=== PATIENT | male | born 1950 | race Caucasian/White ===

== ENCOUNTER → 2016-08-15 | Outpatient (CLI) | payer MEDICARE | END | disposition home or self-care (01) | LOC: CFH 15:20 | PROVIDERS: ATTEND Family Medicine | DX: N28.1 Cyst of kidney, acquired (principal) | CPT/HCPCS: 76770 ==

== ENCOUNTER 2016-10-01 01:54 | Emergency (ER) | payer MEDICARE ==
[~2016-10-01] VITALS: Ht 172.7 cm; Wt 108.9 kg
[2016-10-01] MEDS ORDERED: KETOROLAC 30 MG/1 ML ONE (02:15)
[2016-10-01] MEDS ORDERED: ONDANSETRON 2MG/ML, 2ML ONE (02:15)
[2016-10-01] MEDS ORDERED: ONDANSETRON 2MG/ML, 2ML IVPush ONE (02:30)
[2016-10-01] MEDS ORDERED: KETOROLAC 30 MG/1 ML IVPush ONE (02:30)
[2016-10-01 02:49] LABS: HEMATOCRIT 46.3 % (39.2-51.8); HEMOGLOBIN 15.1 g/dL (13.7-18.0); WHITE BLOOD COUNT 8.1 x10^3/uL (3.4-10)
[2016-10-01 02:57] LABS: PATH.CAST-FLAG NOT PRESENT; SPERM-FLAG NOT PRESENT; SRC-FLAG NOT PRESENT; XTAL-FLAG NOT PRESENT; YLC-FLAG NOT PRESENT
[2016-10-01 03:00] LABS: BLOOD UREA NITROGEN 39 mg/dL (7-18)
[2016-10-01 03:02] LABS: ASPARTATE AMINO TRANSFERASE 25 U/L (15-37)
[2016-10-01 04:26] VITALS: BP 136/67
== END 2016-10-01 05:07 | disposition home or self-care (01) ==
LOC: ED 05:06
DX: N20.1 Calculus of ureter (principal); N23 Unspecified renal colic; R91.8 Other nonspecific abnormal finding of lung field; I12.9 Hypertensive chronic kidney disease with stage 1 through stage 4 chronic kidney disease, or unspecified chronic kidney disease; N18.9 Chronic kidney disease, unspecified; E78.00 Pure hypercholesterolemia, unspecified
CPT/HCPCS: 36415; 74176; 80053; 81001; 83690; 85025; 96374; 96375; 99285; J1885; J2405

== ENCOUNTER 2016-12-19 19:58 | Emergency (ER) | payer MEDICARE ==
[~2016-12-19] VITALS: Ht 172.7 cm; Wt 112.2 kg
[2016-12-19] MEDS ORDERED: ONDANSETRON 2MG/ML, 2ML ONE (20:26)
[2016-12-19] MEDS ORDERED: KETOROLAC 30 MG/1 ML ONE (20:26)
[2016-12-19 20:30] LABS: HEMATOCRIT 48.9 % (39.2-51.8); HEMOGLOBIN 16.3 g/dL (13.7-18.0); WHITE BLOOD COUNT 10.5 x10^3/uL (3.4-10)
[2016-12-19] MEDS ORDERED: ONDANSETRON 2MG/ML, 2ML IVPush ONE (20:30)
[2016-12-19] MEDS ORDERED: SODIUM CHLORIDE FLUSH 10ML SYR IVF ONE (20:30)
[2016-12-19] MEDS ORDERED: KETOROLAC 30 MG/1 ML IVPush ONE (20:30)
[2016-12-19] MEDS ORDERED: SODIUM CHLORIDE 0.9% 1,000ML IVBOLUS ONE (20:30)
[2016-12-19 20:42] LABS: ASPARTATE AMINO TRANSFERASE 19 U/L (15-37); BLOOD UREA NITROGEN 37 mg/dL (7-18)
[2016-12-19] MEDS ORDERED: ATOR20TA9 PO (20:47)
[2016-12-19] MEDS ORDERED: AMLO10TA2 PO (20:47)
[2016-12-19] MEDS ORDERED: LOSA1TAB22 PO (20:47)
[2016-12-19] MEDS ORDERED: LEVO25TA4 PO (20:47)
[2016-12-19] MEDS ORDERED: ATEN50TA41 PO (20:47)
[2016-12-19 21:36] VITALS: BP 122/69
[2016-12-19 21:48] LABS: PATH.CAST-FLAG NOT PRESENT; SPERM-FLAG NOT PRESENT; SRC-FLAG NOT PRESENT; XTAL-FLAG NOT PRESENT; YLC-FLAG NOT PRESENT
== END 2016-12-19 22:27 | disposition home or self-care (01) ==
LOC: ED 22:04
DX: N13.2 Hydronephrosis with renal and ureteral calculous obstruction (principal); R31.9 Hematuria, unspecified; E78.00 Pure hypercholesterolemia, unspecified; I10 Essential (primary) hypertension; E03.9 Hypothyroidism, unspecified
CPT/HCPCS: 36415; 74176; 80053; 81001; 83690; 85025; 96374; 96375; 99285; J1885; J2405

== ENCOUNTER → 2016-12-21 | Outpatient (CLI) | payer MEDICARE ==
[~2016-12-21] MED LIST: AMLO10TA2 PO; ATEN50TA41 PO; ATOR20TA9 PO; LEVO25TA4 PO; LOSA1TAB22 PO
== END | disposition home or self-care (01) ==
LOC: CFH 15:46
PROVIDERS: ATTEND Family Medicine
DX: R91.8 Other nonspecific abnormal finding of lung field (principal); I25.10 Atherosclerotic heart disease of native coronary artery without angina pectoris
CPT/HCPCS: 71250

== ENCOUNTER 2017-02-08 07:26 | Emergency (ER) | payer MEDICARE ==
[~2017-02-08] VITALS: Ht 172.7 cm; Wt 106.8 kg
[2017-02-08] MEDS ORDERED: METO50TA82 PO (07:42)
[2017-02-08 08:29] VITALS: BP 146/78
== END 2017-02-08 08:31 | disposition home or self-care (01) ==
LOC: ED 07:55
DX: I10 Essential (primary) hypertension (principal); E78.00 Pure hypercholesterolemia, unspecified; Z90.49 Acquired absence of other specified parts of digestive tract
CPT/HCPCS: 93005; 99283

== ENCOUNTER → 2017-03-29 | Outpatient (CLI) | payer MEDICARE ==
[~2017-03-29] MED LIST changes: +METO50TA82 PO
== END | disposition home or self-care (01) ==
LOC: CFH 16:37
PROVIDERS: ATTEND Family Medicine
DX: M25.812 Other specified joint disorders, left shoulder (principal)

== ENCOUNTER 2020-08-17 10:42 | Emergency (ER) | payer MEDICARE ==
[~2020-08-17] VITALS: Ht 172.7 cm; Wt 111.4 kg
[~2020-08-17 10:42] MED LIST changes: +AMLO-211 PO; -AMLO10TA2 PO; +ATOR20TA37 PO; -ATOR20TA9 PO
--- NOTE | 2020-08-17 11:44 | NUR ---
Med student at bedside, awaiting orders.
--- NOTE | 2020-08-17 11:59 | NUR ---
Pt presents for LLQ pain r/t kidney stone that was dx yesterday. Stated pain started in flank but is now in LLQ. Initial contact with pt: he was pacing around the gurney, states it's more comfortable that way. Pt denies hematuria, N/V. MD Harrington to bedside for eval.
--- NOTE | 2020-08-17 12:11 | NUR ---
Pt ambulatory to bathroom for UA, steady gait.
[2020-08-17] MEDS ORDERED: ACETAMINOPHEN 500 MG TABLET ONE ×2 (12:13→12:16)
[2020-08-17 12:23] LABS: BASOPHILS % (AUTO) 1 % (0-1); EOSINOPHILS % (AUTO) 1 % (1-7); LYMPHOCYTES % (AUTO) 9 % (22-44); MEAN CORPUSCULAR HEMOGLOBIN 27.2 pg (27.5-34.5); MEAN PLATELET VOLUME 8.9 fL (7.4-10.4); MONOCYTES % (AUTO) 8 % (2-9); NEUTROPHILS % (AUTO) 82 % (42-75); PLATELET COUNT 212 x10^3/uL (130-400); RED BLOOD COUNT 5.22 x10^6/uL (4.38-5.82); RED CELL DISTRIBUTION WIDTH 14.3 % (9.4-14.8)
[2020-08-17] MEDS ORDERED: ACETAMINOPHEN 500 MG TABLET PO ONE (12:30)
[2020-08-17 12:32] LABS: ALANINE AMINOTRANSFERASE 23 U/L (12-78); ALBUMIN 3.8 g/dL (3.4-5.0); ANION GAP 5 mmol/L (5-15); BILIRUBIN, DIRECT 0.2 mg/dL (0.1-0.2); CALCIUM 8.8 mg/dL (8.5-10.1); CHLORIDE 110 mmol/L (98-107); CREATININE 2.48 mg/dL (0.7-1.3)
[2020-08-17 12:34] LABS: ALKALINE PHOSPHATASE 66 U/L (45-117); BILIRUBIN,INDIRECT 0.3 mg/dL (0.0-2.0); BILIRUBIN,TOTAL 0.5 mg/dL (0.2-1.0); TOTAL PROTEIN 6.8 g/dL (6.4-8.2)
[2020-08-17 12:39] LABS: MICROSCOPIC AUTO
--- NOTE | 2020-08-17 13:08 | NUR ---
Pt states he's doing "much better" and denies pain.
[2020-08-17 13:09] VITALS: BP 144/72
== END 2020-08-17 13:20 | disposition home or self-care (01) ==
LOC: ED 13:13
DX: N20.1 Calculus of ureter (principal); R31.9 Hematuria, unspecified; I10 Essential (primary) hypertension; E78.00 Pure hypercholesterolemia, unspecified; E03.9 Hypothyroidism, unspecified
CPT/HCPCS: 36415; 80048; 80076; 81001; 83690; 85025; 99283